=== PATIENT | female | born 1960 | race Caucasian/White ===

== ENCOUNTER 2017-04-29 21:07 | Observation (INO) ==
[2017-04-29] MEDS ORDERED: Aspirin 81 MG TAB.CHEW PO STA (21:19)
[2017-04-29 22:04] LABS: Hematocrit 39.8 % (35.3-44.9); Hemoglobin 13.4 g/dL (11.5-15.4); Mean Corpuscular HGB Conc 33.7 g/dL (31.6-35.5); Mean Corpuscular Volume 83.3 fL (83.0-100.0); Mean Platelet Volume 10.5 fL (9.4-12.4); Platelet Count 220 K/mcL (140-400); Red Blood Count 4.78 M/mcL (3.82-4.97); Red Cell Distribution Width 13.2 % (11.5-14.5)
[2017-04-29 22:22] LABS: BUN/Creatinine Ratio 28 (6-26); Blood Urea Nitrogen 22 mg/dL (6-20); Calcium 9.5 mg/dL (8.6-10.3); Carbon Dioxide 28 mEq/L (23-29); Chloride 102 mEq/L (98-107); Glucose 112 mg/dL (70-105); Osmolality,Calculated 292 (280-300); Potassium 2.9 mEq/L (3.5-5.1); Sodium 139 mEq/L (136-145); eGFR For African Americans > 60 (> 60); eGFR For Non-African Americans > 60 (> 60)
[2017-04-29] MEDS ORDERED: Potassium Citrate 10 MEQ TABLET.ER PO SCH (22:30)
--- NOTE | 2017-04-29 22:31 | Emergency Department Note ---
Disposition Clinical Impression: Elevated troponin, Hypokalemia Disposition: Admitted As Inpatient Condition: Good General Adult HPI - General Chief complaint: ED Recheck/Abnormal Lab/Rx Stated complaint: elevated trop Time Seen by Provider: 04/29/17 21:14 Source: patient Limitations: no limitations Nursing Notes Reviewed: Yes Vital Signs Reviewed: Yes - History of Present Illness HPI Narrative: Patient presents today for abnormal labs. Patient was seen by PCP earlier today for elevation of shoulder pain and jaw pain. The patient's symptoms of jaw pain have been going on for 1 week. Intermittent in nature. No associated chest pain diaphoresis or nausea. Today the patient felt unwell. She had an episode of left shoulder pain. Patient was concerned about muscle spasm. Patient went to work but began feeling what she describes as "not quite right". The patient went to her PCP who had a normal EKG and ordered outpatient blood work. Patient's troponin was elevated at 0.05. She was referred to the emergency department. EKG here is unremarkable. Patient's story is atypical chest pain over the jaw pain is most concerning of her symptoms. Patient lives 1 hour away from the hospital and is concerned about going home. Patient's heart score is calculated at 4. Patient's blood work will be obtained patient be admitted for further observation. Pain Scale: 2 - Related Data Home Medications Medication Instructions Recorded Confirmed Aspirin 325 mg PO DAILY 08/29/15 04/30/17 Cholecalciferol (Vitamin D3) 1,000 unit PO DAILY 08/29/15 04/30/17 [Vitamin D3] Dexlansoprazole [Dexilant] 60 mg PO DAILY 08/29/15 04/30/17 Dicyclomine [Bentyl] 20 mg PO DAILY 08/29/15 04/30/17 Ibuprofen [Motrin] 800 mg PO Q8HR PRN 08/29/15 04/30/17 Ranitidine HCl [Zantac] 150 mg PO DAILY 08/29/15 04/30/17 hydroCHLOROthiazide 25 mg PO DAILY 08/29/15 04/30/17 [Hydrochlorothiazide] Atorvastatin Calcium [Lipitor] 20 mg PO DAILY 04/30/17 04/30/17 Metaxalone [Skelaxin] 800 mg PO HS 04/30/17 04/30/17 Allergies Allergy/AdvReac Type Severity Reaction Status Date / Time Penicillins AdvReac Severe Nausea Verified 04/29/17 21:58 Sulfa (Sulfonamide AdvReac Severe Nausea Verified 04/29/17 21:58 Antibiotics) Review of Systems: CONSTITUTIONAL: No weight loss, fever, chills, weakness or fatigue. HEENT: Eyes: No visual changes. Ears, Nose, Throat: Jaw pain. No hearing loss, difficulty talking or unable to swallow. SKIN: No rash or itching. CARDIOVASCULAR: No chest pain, chest pressure or chest discomfort. No palpitations or edema. RESPIRATORY: No shortness of breath, cough or sputum. GASTROINTESTINAL: No anorexia, nausea, vomiting or diarrhea. No abdominal pain or blood. GENITOURINARY: No burning on urination or hematuria. NEUROLOGICAL: No headache, dizziness, syncope, paralysis, ataxia, numbness or tingling in the extremities. No change in bowel or bladder control. MUSCULOSKELETAL: Left shoulder pain Past Medical History - Past Medical History Medical history: Reports: atrial fibrillation, CVA, GERD, hyperlipidemia Surgical history: Reports: orthopedic, other Psychiatric history: Reports: no psych history - Social History Smoking Status: Never smoker Smokeless Tobacco Status: No Alcohol use: Reports: none Drug use: Reports: none Physical Exam General: Well appearing, nontoxic, no acute distress Head: Normocephalic Atraumatic Eyes: PERRL, EOMI ENT: Airway patent, no stridor Neck: supple, no meningismus Chest: Lungs clear to auscultation bilateral Cardiac: Regular rate and rhythm, no murmurs, rubs or gallops Abdomen: soft, nontender, nondistended; no guarding, rebound, or tenderness to percussion Musculoskeletal: Calves symmetric, nontender, no palpable cord Skin: No rash, normal skin tone Neuro: Alert and Oriented to person, place, and time; No focal deficit, CN 2-12 symmetric and intact - General Limitations: no limitations General appearance: alert, in no apparent distress Course - Reevaluation(s) Reevaluation #1: Patient received aspirin in the emergency department. Patient's heart score for patient will be admitted to the hospitalist for further cardiac evaluation. - Consultations Consultation #1: Discussed with hospitalist. Patient accepted for admission. Vital Signs Temperature 98.6 F 04/29/17 21:08 Pulse Rate 102 04/29/17 21:08 Respiratory Rate 16 04/29/17 21:08 Blood Pressure 150/91 04/29/17 21:08 O2 Sat by Pulse Oximetry 99 04/29/17 21:08 Temperature 97.7 F 05/01/17 06:33 Pulse Rate 77 05/01/17 06:33 Respiratory Rate 15 05/01/17 06:33 Blood Pressure 109/72 05/01/17 06:33 O2 Sat by Pulse Oximetry 96 05/01/17 06:33 Oxygen Delivery Oxygen Delivery Room Air Medical Decision Making - Lab Data Result diagrams: 04/29/17 21:43 05/01/17 03:56 Lab Results 04/29/17 04/29/17 04/29/17 Range/Units 21:43 21:43 21:43 WBC 10.1 (4.3-11.1) K/mcL RBC 4.78 (3.82-4.97) M/mcL Hgb 13.4 (11.5-15.4) g/dL Hct 39.8 (35.3-44.9) % MCV 83.3 (83.0-100.0) fL MCH 28.0 (28.0-33.3) pg MCHC 33.7 (31.6-35.5) g/dL RDW 13.2 (11.5-14.5) % Plt Count 220 (140-400) K/mcL MPV 10.5 (9.4-12.4) fL PT (9.4-12.1) Seconds INR Sodium 139 (136-145) mEq/L Potassium 2.9 L (3.5-5.1) mEq/L Chloride 102 (98-107) mEq/L Carbon Dioxide 28 (23-29) mEq/L BUN 22 H (6-20) mg/dL Creatinine 0.80 (0.60-1.20) mg/dL Est GFR ( Amer) > 60 (> 60) Est GFR (Non-Af Amer) > 60 (> 60) BUN/Creatinine Ratio 28 H (6-26) Glucose 112 H (70-105) mg/dL Est Mean Plasma Glucose mg/dl Hemoglobin A1c ( - 5.6) % Calculated Osmolality 292 (280-300) Calcium 9.5 (8.6-10.3) mg/dL Troponin I < 0.03 (< 0.04) ng/mL Triglycerides (< 150) mg/dL Cholesterol (< 200) mg/dL LDL Cholesterol, Calc (0-99) mg/dL VLDL Cholesterol, Calc (< 31) mg/dL HDL Cholesterol (40-59) mg/dL Cholesterol/HDL Ratio (0-4.9) TSH Receptor Antibody (<=1.75) IU/L 04/29/17 04/29/17 04/29/17 Range/Units 22:53 22:53 22:53 WBC (4.3-11.1) K/mcL RBC (3.82-4.97) M/mcL Hgb (11.5-15.4) g/dL Hct (35.3-44.9) % MCV (83.0-100.0) fL MCH (28.0-33.3) pg MCHC (31.6-35.5) g/dL RDW (11.5-14.5) % Plt Count (140-400) K/mcL MPV (9.4-12.4) fL PT 12.7 H (9.4-12.1) Seconds INR 1.2 Sodium (136-145) mEq/L Potassium (3.5-5.1) mEq/L Chloride (98-107) mEq/L Carbon Dioxide (23-29) mEq/L BUN (6-20) mg/dL Creatinine (0.60-1.20) mg/dL Est GFR ( Amer) (> 60) Est GFR (Non-Af Amer) (> 60) BUN/Creatinine Ratio (6-26) Glucose (70-105) mg/dL Est Mean Plasma Glucose 103 mg/dl Hemoglobin A1c 5.2 ( - 5.6) % Calculated Osmolality (280-300) Calcium (8.6-10.3) mg/dL Troponin I (< 0.04) ng/mL Triglycerides 153 H (< 150) mg/dL Cholesterol 153 (< 200) mg/dL LDL Cholesterol, Calc 86 (0-99) mg/dL VLDL Cholesterol, Calc 31 H (< 31) mg/dL HDL Cholesterol 36 L (40-59) mg/dL Cholesterol/HDL Ratio 4.3 (0-4.9) TSH Receptor Antibody (<=1.75) IU/L 04/29/17 Range/Units 22:53 WBC (4.3-11.1) K/mcL RBC (3.82-4.97) M/mcL Hgb (11.5-15.4) g/dL Hct (35.3-44.9) % MCV (83.0-100.0) fL MCH (28.0-33.3) pg MCHC (31.6-35.5) g/dL RDW (11.5-14.5) % Plt Count (140-400) K/mcL MPV (9.4-12.4) fL PT (9.4-12.1) Seconds INR Sodium (136-145) mEq/L Potassium (3.5-5.1) mEq/L Chloride (98-107) mEq/L Carbon Dioxide (23-29) mEq/L BUN (6-20) mg/dL Creatinine (0.60-1.20) mg/dL Est GFR ( Amer) (> 60) Est GFR (Non-Af Amer) (> 60) BUN/Creatinine Ratio (6-26) Glucose (70-105) mg/dL Est Mean Plasma Glucose mg/dl Hemoglobin A1c ( - 5.6) % Calculated Osmolality (280-300) Calcium (8.6-10.3) mg/dL Troponin I (< 0.04) ng/mL Triglycerides (< 150) mg/dL Cholesterol (< 200) mg/dL LDL Cholesterol, Calc (0-99) mg/dL VLDL Cholesterol, Calc (< 31) mg/dL HDL Cholesterol (40-59) mg/dL Cholesterol/HDL Ratio (0-4.9) TSH Receptor Antibody <0.90 (<=1.75) IU/L Attestation Statement - Attestation Attestation: I examined this patient and my medical decision-making was reviewed with the Resident Physician. I agree with the documented findings, disposition and treatment plan as described.
--- NOTE | 2017-04-29 22:46 | Internal Med History&Physical ---
Date of Encounter: 04/30/17 Time of Encounter: 22:53 Assessment and Plan (1) Elevated troponin Current visit: Yes Status: Acute Trend cardiac enzymes. Stress test in am. Tele bed. check lipid panel, A1c, TSH. c/w ASA. SL nitro. No acute ST or T wave changes on EKG. (2) Jaw pain Current visit: Yes Status: Acute ??? presentation of ACS. Also shoulder blade spasms. Possibly muscular pain given low K. Also had mildly elevated trops at .05 from earlier labs and now normal trops. Will admit and r/o ACS as above. (3) Hypokalemia Current visit: Yes Status: Acute Will give 60 MEQ more. Check labs in am. Likely from and a dose of 20 mg of lasix she took 2 days ago. She is also on HCTZ. (4) Hypertension Current visit: Yes Status: Acute resume home meds Qualifiers: Hypertension type: essential hypertension Qualified Code(s): I10 - Essential (primary) hypertension (5) History of CVA (cerebrovascular accident) Current visit: Yes Status: Acute Resume home dose Aspirin (6) DVT prophylaxis Current visit: Yes Status: Acute heparin SQ Internal Medicine - H&P: HPI Chief complaint: elevated trops Admitted From: Home Plans for Post Hospital Care: Home History of present illness: Ms. Palacios is a 57 year old female with h/o HTN, CVA, obesity, Vit D deficiency who saw her PCP in office today for complains of left jaw pain and ?? left shoulder pain. She was called to get to the ED as trops were .05. Had an EKG there which I dont have access to but reportedly normal. She presented to the ED as she was told to do so. No chest pain. Left sided jaw pain been on and off for a week and when I asked her about shoulder pain, she stated it is not really left shoulder pain but mostly left shoulder blade spams. Had a stress test reportedly and it was normal 2 years ago. This was done in [place] per the patient. EKG with q wave in Lead III in the ED. Last echo in 2014 showed EF 65%, mild left ventricular diastolic dysfunction. She reports taking 20 mg of lasix 2 days ago as she takes in PRN for lower extremity swelling which is resolved now. No fever, chills, headache, diaphoresis, nausea, vomiting , shortness of breath, abdominal pain, urinary symptoms, or neurological symptoms. Other laboratory workup was significant for potassium of 2.9. Initially had BP of 150/91 but was in the 130s/80s while being evaluated by me. Given ASA 324 mg. Past Med Surg Social Fam HX - Past Medical History Medical history: atrial fibrillation, CVA, GERD, hyperlipidemia Psychiatric history: no psych history - Past Surgical History Surgical History: orthopedic, other - Social History Smoking Status: Never smoker Smokeless Tobacco Status: No Alcohol use: none Drug use: none Internal Medicine - H&P: Meds Aspirin 325 mg PO DAILY 08/29/15 [History] Cholecalciferol (Vitamin D3) [Vitamin D3] 1,000 unit PO DAILY 08/29/15 [History] Dexlansoprazole [Dexilant] 60 mg PO DAILY 08/29/15 [History] Diclofenac Sodium [Voltaren] 50 mg PO BID 08/29/15 [History] Dicyclomine [Bentyl] 20 mg PO DAILY 08/29/15 [History] Ibuprofen [Motrin] 800 mg PO Q8HR PRN 08/29/15 [History] Lactobacillus Combination No.8 [Adult Probiotic] 1 cap PO DAILY 08/29/15 [ History] Promethazine [Phenergan] 12.5 mg PO Q6HR PRN 08/29/15 [History] Ranitidine HCl [Zantac] 150 mg PO DAILY 08/29/15 [History] hydroCHLOROthiazide [Hydrochlorothiazide] 25 mg PO DAILY 08/29/15 [History] 3 Allergy/AdvReac Type Severity Reaction Status Date / Time Penicillins AdvReac Severe Nausea Verified 04/29/17 21:58 Sulfa (Sulfonamide AdvReac Severe Nausea Verified 04/29/17 21:58 Antibiotics) All Systems PM: A 10-system review of systems was performed and is negative for pertinent findings except as documented above in the HPI. Review of systems: All systems reviewed are negative except for what is mentioned above - Constitutional Vitals: Temp Pulse Resp BP Pulse Ox 98.6 F 80 14 130/85 98 04/29/17 21:08 04/29/17 21:57 04/29/17 21:57 04/29/17 21:57 04/29/17 21:57 Exam: GEN: NAD HEENT: AT, NC, No cyanosis, oral mucosa is moist, No JVD Lymphatics: No lymphadenoapthy Eyes: Extrocular muscles intact, anicteric CVS:RRR. S1, S2, systolic murmur at base of heart 3/6 with no radiation. RESP: CTAB ABD: Soft, NT, ND, +BS EXT: No edema, No rashes, 2+ DP NEURO: Nonfocal, CN II-XII intact, No focal motor or sensory deficits Psych: Cooperative, Not anxious or depressed Internal Med - H&P Results - Labs CBC & Chem 7: 04/29/17 21:43 04/29/17 21:43 Labs: Short CBC 04/29/17 Range/Units 21:43 WBC 10.1 (4.3-11.1) K/mcL Hgb 13.4 (11.5-15.4) g/dL Hct 39.8 (35.3-44.9) % Plt Count 220 (140-400) K/mcL BMP 04/29/17 21:43 Sodium 139 Potassium 2.9 L Chloride 102 Carbon Dioxide 28 BUN 22 H Creatinine 0.80 Glucose 112 H Calcium 9.5 Cardiac Enzymes 04/29/17 Range/Units 21:43 Troponin I < 0.03 (< 0.04) ng/mL - Impressions ITS Impressions Chest X-Ray 04/29/17 21:19 IMPRESSION: Clear lungs. D/ / Franco Nieves MD / Franco Nieves MD Interpreting Provider: Franco Nieves MD
[2017-04-29] MEDS ORDERED: Naloxone 0.4 MG/ML INJ IVP PRN (22:47)
[2017-04-29] MEDS ORDERED: Acetaminophen 325 MG TABLET PO PRN (22:47)
[2017-04-29] MEDS ORDERED: Nitroglycerin 0.4 MG TAB.SUBL SL PRN (22:48)
[2017-04-29 23:04] LABS: INR 1.2; Prothrombin Time 12.7 Seconds (9.4-12.1)
[2017-04-29 23:07] LABS: Hemoglobin A1C 5.2 %
[2017-04-29 23:15] LABS: Chol/HDL Ratio 4.3 (0-4.9)
[2017-04-30 04:08] LABS: BUN/Creatinine Ratio 23 (6-26); Blood Urea Nitrogen 18 mg/dL (6-20); Calcium 9.3 mg/dL (8.6-10.3); Carbon Dioxide 31 mEq/L (23-29); Chloride 104 mEq/L (98-107); Glucose 106 mg/dL (70-105); Osmolality,Calculated 294 (280-300); Potassium 3.9 mEq/L (3.5-5.1); Sodium 141 mEq/L (136-145); eGFR For African Americans > 60 (> 60); eGFR For Non-African Americans > 60 (> 60)
--- NOTE | 2017-04-30 11:18 | Internal Med Progress Note ---
Date of Encounter: 04/30/17 Time of Encounter: 11:18 - Assessment and plan (1) Shoulder blade pain Current Visit: Yes Status: Acute Assessment and plan: Left posterior shoulder pain. Focal tenderness demonstrated. Lumbosacral and thoracic spine x-ray noted for multilevel degenerative disease. Tylenol when necessary. (2) DVT prophylaxis Current Visit: Yes Status: Acute Assessment and plan: heparin SQ (3) Elevated troponin Current Visit: Yes Status: Acute Assessment and plan: Troponin was 0.05% is afebrile. Troponin has since been 0.03. TSH within normal limits. No acute ST or T-wave changes on her EKG. Further stress test and echocardiogram. A1c is normal at 5.2. (4) Hypertension Current Visit: Yes Status: Chronic Assessment and plan: Continue hydrochlorothiazide. Qualifiers: Hypertension type: essential hypertension Qualified Code(s): I10 - Essential (primary) hypertension (5) Hypokalemia Current Visit: Yes Status: Acute Assessment and plan: Possibly secondary to use of hydrochlorothiazide at home. Presenting potassium 2.9, potassium this morning 4.9. Continue to monitor. 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 She seen and evaluated at the bedside with the family, she denies any chest pain since admission. Stress test is pending. She does have systolic murmur, echocardiogram in 2014 was negative, I will repeat an echocardiogram today. - Constitutional Vitals: Temp Pulse Resp BP Pulse Ox 97.6 F 79 15 102/61 98 04/30/17 04:43 04/30/17 04:43 04/30/17 04:43 04/30/17 04:43 04/30/17 10:04 General appearance: Present: A&O X 3, no acute distress, obese - Head Head exam: Present: atraumatic, normocephalic - Eye Eye exam: Present: PERRL, conjuntiva pink, sclera anicteric Pupils: Present: PERRL - Neck Neck exam general surgery: Present: supple, trachea midline. Absent: lymphadenopathy - Respiratory Respiratory exam: Present: CTAB. Absent: accessory muscle use, rales, rhonchi, wheezes - Cardiovascular Cardiovascular exam: Present: RRR, +S1, +S2, systolic murmur. Absent: diastolic murmur, gallop, rubs - GI/Abdominal GI/Abdominal exam: Present: normal bowel sounds, soft, no peritoneal signs. Absent: distended, tenderness - Extremities Exam Extremities exam: Present: warm, radial pulses palpable and symmetrical. Absent : calf tenderness, cyanotic, pedal edema - Back Exam Additional comments: Left upper region focal tenderness. - Neurological Exam Neurological exam: Present: alert, CN II-XII intact, oriented X3, no focal deficits. Absent: pronater drift, facial droop, speech deficit - Skin Skin exam: Present: dry, intact Internal Medicine: Result - Labs CBC & Chem 7: 04/29/17 21:43 04/30/17 03:44 Labs: BMP 04/30/17 03:44 Sodium 141 Potassium 3.9 D Chloride 104 Carbon Dioxide 31 H BUN 18 Creatinine 0.79 Glucose 106 H Calcium 9.3 Cardiac Enzymes 04/30/17 04/30/17 Range/Units 03:44 10:12 Troponin I < 0.03 < 0.03 (< 0.04) ng/mL - ABG Interpretation ABG results: PT/INR, D-dimer PT 12.7 Seconds (9.4-12.1) H 04/29/17 22:53 - Impressions Impressions Chest CTA 04/30/17 06:49 IMPRESSION: 1. No evidence of pulmonary embolus or acute pulmonary abnormality. 2. Incidental finding of a 4 mm nodule in the right middle lobe. Same finding was present on the exam of October 22, 2008. Given long-term stability, no additional follow-up is recommend for this finding. D/ / 04/30/2017 08:14:12 Alf Gunderson MD / danny Interpreting Provider: Alf Gunderson MD Consult Discharge Plan - Plan Referrals: Nyasia Sandra CNP [Primary Care Provider] -
--- NOTE | 2017-04-30 13:02 | Electrocardiograph Report ---
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
[2017-04-30] MEDS: Famotidine 20 MG TABLET PO SCH (13:35)
[2017-04-30] MEDS: Cholecalciferol (D-3) 1,000 UNIT TABLET PO SCH (13:35)
[2017-04-30] MEDS: hydroCHLOROthiazide 25 MG TABLET PO SCH (13:36)
--- NOTE | 2017-04-30 18:09 | Electrocardiograph Report ---
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
[2017-05-01 04:40] LABS: BUN/Creatinine Ratio 22 (6-26); Blood Urea Nitrogen 15 mg/dL (6-20); Calcium 9.2 mg/dL (8.6-10.3); Carbon Dioxide 29 mEq/L (23-29); Chloride 104 mEq/L (98-107); Glucose 114 mg/dL (70-105); Osmolality,Calculated 292 (280-300); Potassium 3.5 mEq/L (3.5-5.1); Sodium 140 mEq/L (136-145); eGFR For African Americans > 60 (> 60); eGFR For Non-African Americans > 60 (> 60)
[2017-05-01 06:34] VITALS: BP 109/72
[2017-05-01] MEDS: hydroCHLOROthiazide 25 MG TABLET PO SCH (08:20)
[2017-05-01] MEDS: Cholecalciferol (D-3) 1,000 UNIT TABLET PO SCH (08:21)
[2017-05-01] MEDS: Famotidine 20 MG TABLET PO SCH (08:21)
[2017-05-01] MEDS ORDERED: (Dexlansoprazole [Dexilant] 60 MG) PO SCH (09:00)
--- NOTE | 2017-05-01 12:06 | Discharge Summary ---
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 She seen and evaluated at the bedside with the family, she denies any chest pain since admission. CXR, EKG, CTA, Stress test negative for acute findings, patient did have hypokalemia which improved with replacement She is on HCTZ, which may have been responsible for her hypokalemia, she wants to defer being on potassium replacements to her PCP She does have DJD of the spine per and scoliosis. She will rather be discharged home and have her PCP follow up with her ECHO Discharge discussed with: patient, family - Time Spent with Patient Total time spent providing and/or coordinating discharge services: Less than 30 minutes - Discharge Medications Home Medications: Aspirin 325 mg PO DAILY 08/29/15 [History] Cholecalciferol (Vitamin D3) [Vitamin D3] 1,000 unit PO DAILY 08/29/15 [History] Dexlansoprazole [Dexilant] 60 mg PO DAILY 08/29/15 [History] Dicyclomine [Bentyl] 20 mg PO DAILY 08/29/15 [History] Ibuprofen [Motrin] 800 mg PO Q8HR PRN 08/29/15 [History] Ranitidine HCl [Zantac] 150 mg PO DAILY 08/29/15 [History] hydroCHLOROthiazide [Hydrochlorothiazide] 25 mg PO DAILY 08/29/15 [History] Atorvastatin Calcium [Lipitor] 20 mg PO DAILY 04/30/17 [History] Metaxalone [Skelaxin] 800 mg PO HS 04/30/17 [History] Allergies/Adverse Reactions: 3 Allergy/AdvReac Type Severity Reaction Status Date / Time Penicillins AdvReac Severe Nausea Verified 04/29/17 21:58 Sulfa (Sulfonamide AdvReac Severe Nausea Verified 04/29/17 21:58 Antibiotics) Date of admission: 04/30/17 00:17 Primary care physician: Nyasia Sandra CNP Discharging clinician: Dick Mcclelland Anticipated date of discharge: 05/01/17 - Constitutional Vitals: Temp Pulse Resp BP Pulse Ox 97.7 F 77 15 109/72 96 05/01/17 06:33 05/01/17 06:33 05/01/17 06:33 05/01/17 06:33 05/01/17 06:33 General appearance: Present: A&O X 3, no acute distress, obese - Head Head exam: Present: atraumatic, normocephalic - Eye Eye exam: Present: PERRL, conjuntiva pink, sclera anicteric Pupils: Present: PERRL - Neck Neck exam general surgery: Present: supple, trachea midline. Absent: lymphadenopathy - Respiratory Respiratory exam: Present: CTAB. Absent: accessory muscle use, rales, rhonchi, wheezes - Cardiovascular Cardiovascular exam: Present: RRR, +S1, +S2. Absent: diastolic murmur, gallop, rubs, systolic murmur - GI/Abdominal GI/Abdominal exam: Present: normal bowel sounds, soft, no peritoneal signs. Absent: distended, tenderness - Extremities Exam Extremities exam: Present: warm, radial pulses palpable and symmetrical. Absent : calf tenderness, cyanotic, pedal edema - Neurological Exam Neurological exam: Present: alert, CN II-XII intact, oriented X3, no focal deficits. Absent: pronater drift, facial droop, speech deficit - Skin Skin exam: Present: dry, intact - Patient Status Disposition: Home, Self-Care Condition: Good - Discharge Instructions Instructions: Cardiac Stress Test (DC), Cardiac Stress Test (GEN), Chest Pain ( DC), Transthoracic Echocardiogram (DC), Chronic Hypertension (DC), Heart Murmur (GEN) Follow Up With: Nyasia Sandra CNP [Primary Care Provider] -
== END 2017-05-01 13:11 | disposition home or self-care (01) ==
LOC: EMEROO 21:07 → 2NENU 21:07
PROVIDERS: ADMIT Internal Medicine; ATTEND Internal Medicine

== ENCOUNTER 2021-07-08 17:20 | Observation (INO) ==
[2021-07-08 12:09] LABS: Hematocrit 35.4 % (35.3-44.9); Hemoglobin 10.9 g/dL (11.5-15.4); Mean Corpuscular HGB Conc 30.8 g/dL (31.6-35.5); Mean Corpuscular Hemoglobin 26.9 pg (28.0-33.3); Mean Corpuscular Volume 87.4 fL (83.0-100.0); Mean Platelet Volume 10.8 fL (9.4-12.4); Platelet Count 200 K/mcL (140-400); Red Blood Count 4.05 M/mcL (3.82-4.97); Red Cell Distribution Width 14.1 % (11.5-14.5); White Blood Count 7.9 K/mcL (4.3-11.1)
[2021-07-08 12:28] LABS: BUN/Creatinine Ratio 20 (6-26); Blood Urea Nitrogen 17 mg/dL (8-23); Calcium 8.8 mg/dL (8.6-10.3); Carbon Dioxide 26 mEq/L (23-29); Chloride 109 mEq/L (98-107); Glucose 107 mg/dL (70-105); Magnesium 2.1 mg/dL (1.6-2.6); Osmolality,Calculated 296 (280-300); Potassium 3.8 mEq/L (3.5-5.1); Sodium 142 mEq/L (136-145); eGFR For African Americans > 60 (> 60); eGFR For Non-African Americans > 60 (> 60)
[~2021-07-08 17:20] MED LIST: Acetaminophen 325 MG TABLET PO PRN; Naloxone 0.4 MG/ML INJ IVP PRN
[2021-07-08] MEDS: Metoprolol XL (24 HR) Succ 50 MG TAB.ER.24H PO SCH (20:13)
[2021-07-08] MEDS: Apixaban 5 MG TABLET PO SCH (20:13)
[2021-07-09] MEDS: Aspirin Enteric Coated 81 MG Tablet PO SCH (08:21)
[2021-07-09] MEDS: Apixaban 5 MG TABLET PO SCH ×2 (08:21→21:06)
[2021-07-09] MEDS: Celecoxib 200 MG CAPSULE PO SCH (08:22)
[2021-07-09] MEDS: Metoprolol XL (24 HR) Succ 50 MG TAB.ER.24H PO SCH ×2 (08:22→21:06)
[2021-07-10 07:05] VITALS: O2SAT 96
[2021-07-10] MEDS: Aspirin Enteric Coated 81 MG Tablet PO SCH (07:20)
[2021-07-10] MEDS: Celecoxib 200 MG CAPSULE PO SCH (07:20)
[2021-07-10] MEDS: Metoprolol XL (24 HR) Succ 50 MG TAB.ER.24H PO SCH (07:20)
[2021-07-10] MEDS: Apixaban 5 MG TABLET PO SCH (07:20)
[2021-07-10] MEDS ORDERED: *HR* Midazolam HCl 5 MG/5 ML VIAL IVP ONE (10:26)
[2021-07-10] MEDS ORDERED: *HR* FentaNYL (PF) 250 MCG/5 ML VIAL ONE (10:26)
[2021-07-10] MEDS ORDERED: 0.9 % Sodium Chloride 1,000 ML ONE (10:30)
[2021-07-10] MEDS ORDERED: *HR* Midazolam HCl 2 MG/2 ML VIAL ONE (11:02)
[2021-07-10 15:13] VITALS: BP 101/71; PULSE 64; TEMP 97.6
== END 2021-07-10 18:33 | disposition home or self-care (01) ==
LOC: 2ANU
PROVIDERS: ADMIT Nurse Practitioner Acute Care; ATTEND Internal Medicine Clinical Cardiac Electrophysiology